=== PATIENT | female | born 1995 | race African-American/Black ===

== ENCOUNTER 2021-02-25 17:37 | Emergency (ER) | payer MEDICAID ==
[~2021-02-25] VITALS: Ht 160 cm; Wt 54.0 kg
[2021-02-25 21:33] VITALS: BP 132/80
== END 2021-02-25 21:56 | disposition home or self-care (01) ==
LOC: ER 17:37
DX: N93.9 Abnormal uterine and vaginal bleeding, unspecified (principal)
CPT/HCPCS: 81025; 99282